=== PATIENT | female | born 1930 | race Two or more races ===

== ENCOUNTER 2017-06-18 23:40 | Inpatient (IN) | payer MEDICARE, MEDICAID ==
[~2017-06-18] VITALS: Ht 162.6 cm; Wt 68.0 kg
[~2017-06-18 23:40] MED LIST: ALENDRONATE SOD10 MG ORAL; AMLODIPINE BES2.5 MG ORAL; ARICEPT10 MG ORAL; BENICAR40 MG ORAL; CLOTRIMAZOLE15 GM TOPIC; FLUTICASONE PRO16 G1 NASAL; NITRO-BID1 GM TOPIC; PRAVASTATIN SOD20 M1 ORAL; SERTRALINE HCL25 MG ORAL
--- NOTE | 2017-06-19 00:35 | Emergency Room Report ---
History of Present Illness General Chief Complaint: Syncope Source: Patient Present Illness HPI 87-year-old female presenting with presyncopal episode. Patient had a mechanical fall today, fell onto her right side, had right thigh pain, went to [facility], had x-rays done and blood work they stated that there is no fracture. Patient was given 1 norco, They asked for another pill right before patient leaves so that she will not be in pain. When patient went home she felt very lightheaded, dizzy, had presyncopal episode. Did not fall again did not hit her head. Head trauma, +LOC for [ ] min. Denies sob, palpitations, or chest pain before event. There was no seizure like activity, tongue biting, urinary incontinence, blurry vision, or ROWELL. Pt has been eating/drinking well. After fall patient was ambulatory with her walker. Allergies: Coded Allergies: ASPIRIN (Verified Allergy, Unknown, 07/13/16) SULFA (SULFONAMIDE ANTIBIOTICS) (Verified Allergy, Unknown, 07/13/16) Patient History Past Medical History: see triage record Past Surgical History: none Pertinent Family History: none Now: No Reviewed Nursing Documentation: PMH: Agreed, PSxH: Agreed Nursing Documentation-PMH Hx Cardiac Problems: Yes - hyperlipidemia Hx Hypertension: Yes - high cholesterol Hx Diabetes: Yes - Pre-diabetic Hx Cancer: No Hx Gastrointestinal Problems: No History Of Psychiatric Problem: Yes - Alzheimers Hx Alzheimer's Disease: Yes Hx Memory Loss: Yes Hx Dizziness: Yes Review of Systems All Other Systems: negative except mentioned in HPI Physical Exam Vital Signs Date Time Temp Pulse Resp B/P (MAP) Pulse Ox O2 Delivery O2 Flow Rate FiO2 06/18/17 23:33 56 18 109/61 93 Room Air Sp02 EP Interpretation: reviewed, normal General Appearance: normal inspection, well appearing, no apparent distress, alert, GCS 15, non-toxic Head: normocephalic, atraumatic Eyes: bilateral eye normal inspection, bilateral eye PERRL, bilateral eye EOMI ENT: normal ENT inspection, normal pharynx, normal voice, moist mucus membranes Neck: normal inspection, full range of motion, supple Respiratory: normal inspection, lungs clear, normal breath sounds, no respiratory distress, no retraction, no wheezing, speaking full sentences, chest symmetrical Cardiovascular #1: normal inspection, regular rate, rhythm, no edema, normal capillary refill Cardiovascular #2: 2+ radial (R), 2+ radial (L) Gastrointestinal: normal inspection, non tender, soft, non-distended, no guarding Musculoskeletal: other - Right lateral proximal thigh with ecchymosis, swelling , otherwise right lower high he is not rotated or shortened, has full range of motion, tender to palpation ecchymosis Neurologic: normal inspection, alert, oriented x3, responsive, motor strength/ tone normal, sensory intact, speech normal Psychiatric: normal inspection, judgement/insight normal, memory normal Skin: normal inspection, normal color, no rash, warm/dry, well hydrated, normal turgor Medical Decision Making Diagnostic Impression: Primary Impression: UTI (urinary tract infection) Additional Impressions: Syncope Generalized weakness Hematoma of right thigh ER Course 87-year-old female with presyncopal episode DDX Possible drug reaction from opiates Vasovagal vs. orthostatic / hypovolemic/dehydration vs. cardiac arrhythmia (SVT , Afib) vs. cardiac (, ACS) vs. PE vs. metabolic (hypoglycemia, hypoxia), vs neuro (seizure, CVA, intracranial bleed) There is no head trauma or LOC, no neurological signs or symptoms at this time, will not do CT head from Plan: bgm, cbc, bmp, ekg, cxr consider IVF Patient was just discharged from [facility], for right thigh pain after fall, was told that all imaging was negative, so I will not repeat any x-rays here ER course: Patient has remained awake alert, and neurologically intact IV abx given for UTI Disposition: Patient requires inpatient admission for generalized weakness, UTI, presyncopal episode Patient will be admitted to telemetry Discussed with Dr. de santiago who has accepted patient for admission Please note that this Emergency Department Report was dictated using [employer] house supervisor technology software, occasionally this can lead to erroneous entry secondary to interpretation by the dictation equipment. EKG Diagnostic Results EP Interpretation: Yes Rate: normal Rhythm: NSR ST Segments: T-wave inversions noted in lateral leads ASA given to patient: No Rhythm Strip EP Interpretation: Yes Rate: 60 Rhythm: NSR, no PVCs, no ectopy. Chest X-ray CXR: Ordered: Yes 1 view Indication: Chest pain EP interpretation: Yes Interpretation: No consolidation, no effusion, no PTX, no acute cardiopulmonary disease Impression: No acute disease Electronically signed by Doug Guzmán MD Laboratory Tests Test 06/19/17 00:20 06/19/17 00:30 White Blood Count 10.0 K/UL (4.8-10.8) Red Blood Count 4.14 M/UL (4.20-5.40) L Hemoglobin 12.3 G/DL (12.0-16.0) Hematocrit 37.9 % (37.0-47.0) Mean Corpuscular Volume 92 FL (80-99) Mean Corpuscular Hemoglobin 29.7 PG (27.0-31.0) Mean Corpuscular Hemoglobin Concent 32.5 G/DL (32.0-36.0) Red Cell Distribution Width 12.9 % (11.6-14.8) Platelet Count 83 K/UL (150-450) L Mean Platelet Volume 16.9 FL (6.5-10.1) H Neutrophils (%) (Auto) % (45.0-75.0) Lymphocytes (%) (Auto) % (20.0-45.0) Monocytes (%) (Auto) % (1.0-10.0) Eosinophils (%) (Auto) % (0.0-3.0) Basophils (%) (Auto) % (0.0-2.0) Sodium Level 143 MMOL/L (136-145) Potassium Level 3.8 MMOL/L (3.5-5.1) Chloride Level 109 MMOL/L (98-107) H Carbon Dioxide Level 24 MMOL/L (21-32) Anion Gap 10 mmol/L (5-15) Blood Urea Nitrogen 23 mg/dL (7-18) H Creatinine 0.7 MG/DL (0.55-1.30) Estimate Glomerular Filtration Rate mL/min (>60) Glucose Level 155 MG/DL (74-106) H Calcium Level 9.0 MG/DL (8.5-10.1) Total Bilirubin 0.4 MG/DL (0.2-1.0) Aspartate Amino Transferase (AST) 19 U/L (15-37) Alanine Aminotransferase (ALT) 22 U/L (12-78) Alkaline Phosphatase 49 U/L (46-116) Total Creatine Kinase 94 U/L (26-308) Creatine Kinase MB 3.3 NG/ML (0.0-3.6) Creatine Kinase MB Relative Index 3.5 Troponin I 0.057 ng/mL (0.000-0.056) Pro-B-Type Natriuretic Peptide 1334 pg/mL (0-125) H Total Protein 5.9 G/DL (6.4-8.2) L Albumin 3.2 G/DL (3.4-5.0) L Globulin 2.7 g/dL Albumin/Globulin Ratio 1.2 (1.0-2.7) Urine Color Brown Urine Appearance Slightly cloudy Urine pH 5 (4.5-8.0) Urine Specific [place] 1.025 (1.005-1.035) Urine Protein 1+ (NEGATIVE) H Urine Glucose (UA) Negative (NEGATIVE) Urine Ketones 1+ (NEGATIVE) H Urine Occult Blood 2+ (NEGATIVE) H Urine Nitrite Positive (NEGATIVE) H Urine Bilirubin Negative (NEGATIVE) Urine Urobilinogen Normal MG/DL (0.0-1.0) Urine Leukocyte Esterase 2+ (NEGATIVE) H Urine RBC 2-4 /HPF (0 - 2) H Urine WBC 2-4 /HPF (0 - 2) Urine Squamous Epithelial Cells Occasional /LPF Urine Calcium Oxalate Crystals Few /LPF (NONE) Urine Bacteria Moderate /HPF (NONE) H Last Vital Signs Date Time Temp Pulse Resp B/P (MAP) Pulse Ox O2 Delivery O2 Flow Rate FiO2 06/18/17 23:33 56 18 109/61 93 Room Air Disposition: ADMITTED INPATIENT Condition: Doug Powers M.D. Jun 19, 2017 00:35
[2017-06-19 00:59] LABS: APPEARANCE,URINE SLIGHTLY CLOUDY; BILIRUBIN, URINE NEGATIVE (NEGATIVE); COLOR,URINE BROWN; GLUCOSE, URINE (UA) NEGATIVE (NEGATIVE); KETONES,URINE 1+ (NEGATIVE); LEUKOCYTE ESTERASE ,URINE 2+ (NEGATIVE); NITRITE,URINE POSITIVE (NEGATIVE); PH,URINE 5 (4.5-8.0); PROTEIN,URINE 1+ (NEGATIVE); UROBILINOGEN,URINE NORMAL MG/DL (0.0-1.0)
[2017-06-19 00:59] LABS: HEMATOCRIT 37.9 % (37.0-47.0); HEMOGLOBIN 12.3 G/DL (12.0-16.0); MEAN CORPUSCULAR VOLUME 92 FL (80-99); PLATELET COUNT 83 K/UL (150-450); RED BLOOD COUNT 4.14 M/UL (4.20-5.40); RED CELL DISTRIBUTION WIDTH 12.9 % (11.6-14.8)
[2017-06-19 01:13] LABS: ALANINE AMINOTRANSFERASE 22 U/L (12-78); ALBUMIN 3.2 G/DL (3.4-5.0); ALBUMIN/GLOBULIN RATIO 1.2 (1.0-2.7); ALKALINE PHOSPHATASE 49 U/L (46-116); ANION GAP 10 mmol/L (5-15); ASPARTATE AMINO TRANSFERASE 19 U/L (15-37); BILIRUBIN,TOTAL 0.4 MG/DL (0.2-1.0); BLOOD UREA NITROGEN 23 mg/dL (7-18); CARBON DIOXIDE 24 MMOL/L (21-32); CHLORIDE 109 MMOL/L (98-107); CREATININE 0.7 MG/DL (0.55-1.30); POTASSIUM 3.8 MMOL/L (3.5-5.1); SODIUM 143 MMOL/L (136-145)
[2017-06-19] MEDS ORDERED: cefTRIAXone 1 GM in NS 55 ML IVPB ONE (01:15)
[2017-06-19 01:21] LABS: CKMB 3.3 NG/ML (0.0-3.6); CREATINE KINASE 94 U/L (26-308)
[2017-06-19] MEDS ORDERED: PRAVASTATIN SOD20 M1 ORAL (03:30)
[2017-06-19] MEDS ORDERED: DONEPEZIL HCL10 MG ORAL (03:30)
[2017-06-19] MEDS ORDERED: FOSAMAX70 MG ORAL (03:30)
[2017-06-19 03:47] VITALS: BP 109/61
[2017-06-19] MEDS ORDERED: Zolpidem 5mg tab ORAL PRN (06:00)
[2017-06-19] MEDS ORDERED: Donepezil 10mg tab ORAL SCH (09:00)
[2017-06-19] MEDS ORDERED: Sertraline 50mg tab ORAL SCH (09:00)
[2017-06-19 09:08] LABS: CHOLESTEROL 202 MG/DL (< 200); HDL CHOLESTEROL 77 MG/DL (40-60); TRIGLYCERIDES 94 MG/DL (0-200)
[2017-06-19 09:19] LABS: HEMATOCRIT 37.4 % (37.0-47.0); HEMOGLOBIN 11.9 G/DL (12.0-16.0); MEAN CORPUSCULAR VOLUME 92 FL (80-99); PLATELET COUNT 76 K/UL (150-450); RED BLOOD COUNT 4.06 M/UL (4.20-5.40); RED CELL DISTRIBUTION WIDTH 13.1 % (11.6-14.8); WHITE BLOOD COUNT 7.9 K/UL (4.8-10.8)
--- NOTE | 2017-06-19 10:21 | Diagnostic Imaging Report ---
Indication: PAIN Technique: One view of the chest Comparison: 07/13/2016 Findings: Less optimal inspiration currently. The heart is borderline enlarged. The aorta is tortuous and calcified. Lungs and pleural spaces are clear. There is thoracolumbar scoliotic deformity again demonstrated Impression: Findings as noted. No definite acute process This agrees with the preliminary interpretation provided by the emergency room physician
[2017-06-19 11:52] VITALS: BP 124/55
--- NOTE | 2017-06-19 12:55 | Wound Care Consultation ---
Wound Assessment Wound Assessment : Wound Number: 1 Wound Present on Admission: Yes New Wound: No Status Change of Wound: No Wound Location Body Site Modif: right Wound Location Body Site: elbow Wound Type: traumatic injury Usama Test: Does not Usama Percent of Wound Purple/Maroon: 100 - dry Wound Drainage Amount: None Wound Drainage Odor: None/Absent Tissue Surrounding Wound: Erythemic Wound General Appearance: Reddened Wound Comment #1 Right elbow s/p fall traumatic injury. No drainage noted at this tme. Recommendation -Keep clean and dry -#1 Upper back are DTI pressure ulcer. Cover with Biatain silicone drg daily -Optimize nutrition -Assess and f/u accordingly for any changes GUI SORIANO RN Jun 19, 2017 12:55
[2017-06-19 16:00] VITALS: BP 133/60
[2017-06-19 19:21] LABS: CKMB 3.2 NG/ML (0.0-3.6)
[2017-06-19 20:00] VITALS: BP 123/64
[2017-06-19] MEDS ORDERED: Lidocaine 1% MPF 10mg/ml 5ml INJ SCH (21:00)
[2017-06-19] MEDS ORDERED: cefTRIAXone 1gm/D5W 55ml IVPB SCH ×2 (22:00)
--- NOTE | 2017-06-19 22:15 | Consultation ---
DATE OF CONSULTATION: 06/19/2017 CARDIOLOGY CONSULTATION CONSULTING PHYSICIAN: Lemuel Andrew M.D. REQUESTING PHYSICIAN: Jair De La Rosa M.D. REASON FOR CONSULTATION: Elevated troponin level. HISTORY OF PRESENT ILLNESS: This 87-year-old [place]ian female was walking in the parking lot with her son yesterday afternoon when she tripped, fell, and landed on her right side. Son grabbed her left shoulder to capture, but was unable to prevent trauma to her right hip region. She was taken to [facility] emergency room where x-rays were done and negative for any fracture. The patient did have a huge bruise on her right thigh area that was noted to be quite large at the time of her discharge from [facility]. She was given pain medications and sent home. While in the elevator going back home, she suddenly began feeling lightheaded, dizzy, and passed out. She did not have any head trauma and on this occasion according to her son, did have loss of consciousness for a few seconds. Paramedics were summoned and the patient was brought here for further evaluation. She did not have any seizure activity and reportedly had stable vital signs. In the emergency room, blood pressure was 109/61 with heart rate 56 and respiratory rate of 18. In the field, she was given Narcan. PAST MEDICAL HISTORY: Type 2 diabetes mellitus, hyperlipidemia, hypertension, and cerebrovascular disease with mild dementia. MEDICATIONS: Medications prior to admission reviewed and reconciled. ALLERGIES: Aspirin and sulfa. FAMILY HISTORY: Noncontributory. REVIEW OF SYSTEMS: No fevers or chills. No cough or sputum production. No history of asthma. No history of blood clots in the legs. No history of seizure or prior stroke. No history of heart attack in the past. She does have mild blood pressure elevation. She has diabetes, managed with diet. She is on anti-lipid therapy. There is no history of melena, bright red blood per rectum, or urinary incontinence. The patient was hospitalized here about a year ago with a syncopal episode. Workup included a carotid duplex scan revealing mild plaquing and an echocardiogram revealing normal ejection fraction and minimal degenerative valve disease and no additional workup was performed. PHYSICAL EXAMINATION: VITAL SIGNS: As noted above. HEENT: Conjunctivae are pink. Sclerae anicteric. Oropharynx clear. Mucous membranes moist. NECK: Supple. Jugular venous pressure normal. Carotid upstrokes without delay. LUNGS: Clear. CARDIAC: Regular rhythm and rate. Normal S1 and S2 with a 4th heart sound. No murmur. ABDOMEN: Soft and nontender. EXTREMITIES: There is a large ecchymotic swollen region of her right proximal thigh. Distal pulses are palpable. The left shoulder has full passive range of motion. NEUROLOGIC: Nonfocal. LABORATORY AND DIAGNOSTIC DATA: EKG, sinus bradycardia with voltage criteria for left ventricular hypertrophy. White count 7.9 and hemoglobin 11.9. Potassium 3.8. Troponin 0.057. LDL 109 and HDL 77. Pro-natriuretic peptide 1334. Albumin 3.2. Glucose 155. IMPRESSION: 1. Syncopal episode, appears to have been precipitated by pain medications given following a mechanical fall earlier in the day. 2. Elevated troponin level raises concern of an acute myocardial ischemic episode. Pro-natriuretic peptide assay elevation suggests chronic diastolic congestive heart failure due to hypertensive heart disease. 3. Mild prerenal azotemia suggests hypovolemia and mild dehydration. 4. Sinus bradycardia, presently does not appear to be of hemodynamic significance. PLAN: 1. Continue cardiac monitoring. 2. Cautious hydration. 3. Serial troponins. 4. Avoid beta-blockers in view of low baseline heart rate. 5. Hold antihypertensives in view of low range blood pressure at this time. 6. Pain control as needed. 7. We will need to review radiographs from [facility] and consider further imaging if the patient's mobility is impaired. 8. While in bed, DVT prophylaxis has been put into place. Lemuel Andrew M.D. DR: MAKENZIE JOB#: [id number] CC:
--- NOTE | 2017-06-19 23:00 | History and Physical Report ---
DATE OF ADMISSION: 06/19/2017 REASON FOR ADMISSION: Syncope. HISTORY OF PRESENT ILLNESS: This is an 87-year-old female whose son is at the bedside. The patient is mostly Farsi speaking. The patient had mechanical fall yesterday. After taking [place], the patient apparently went to [facility] Emergency Room and had x-rays done and blood work done for possible fracture. The patient went home and actually taking [place], felt dizzy and had a syncopal episode. The patient did not have any head trauma, but she does complain of significant bruising of the right thigh. The patient without any seizure activity. No incontinence noted. The care discussed with the son. 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 The patient has evidence of thrombocytopenia. PAST MEDICAL HISTORY: As noted above. The patient has evidence of hypercholesterolemia. She may have early dementia, has mild reflux, possibly mild depression. SOCIAL HISTORY: Nonsmoker and nondrinker. The patient is otherwise ambulatory, independent. REVIEW OF SYSTEMS: Otherwise negative with the exception of the above. The patient has also history of hyperlipidemia. PHYSICAL EXAMINATION: GENERAL: A well-developed female, comfortable, alert, and oriented x3. VITAL SIGNS: Blood pressure 109/61, 93% saturation on room air, pulse 56, the patient's respiratory rate is 18. HEENT: Fairly negative. Extraocular movements are grossly intact. There is no photophobia. Oropharynx moist. NECK: Supple. The patient able to move neck adequately, but does have some pain. LUNGS: Fairly clear. Symmetric. No rhonchi or wheezes. CARDIAC: Normal S1 and S2. Regular rate and rhythm. Intermittent bradycardia. No murmurs, rubs, or gallops. ABDOMEN: Soft, nontender, and nondistended. EXTREMITIES: No cyanosis, clubbing, or edema. The patient's right thigh with a large bruise. NEUROLOGIC: Otherwise nonfocal. She moves all extremities symmetrically in bed. LABORATORY AND DIAGNOSTIC DATA: Laboratory data reviewed. CBC normal except platelets are 83. Electrolytes fairly normal. BUN 23, creatinine 0.7. Troponin 0.057. Albumin is 3.2. EKG noted and reviewed. IMPRESSION: 1. Elevated troponin, possible [id number] myocardial infarction. 2. History of hypercholesterolemia. 3. Hypertension. 4. History of syncope. 5. History of fall. 6. Evidence of thrombocytopenia. RECOMMENDATION: Resume medications. Empiric antibiotics given unclear as to why, review of the urinalysis suggests fairly negative findings. We will monitor clinically and maintain IV hydration. We will treat possible UTI with p.o. antibiotics and followup on urine culture. We will obtain Cardiology evaluation to assess for elevated troponin. We will obtain serial troponins, obtain echo and EKG. Discussed with son. We will discharge when the patient is stable. Jair De La Rosa M.D. DR: DALJIT JOB#: [id number] CC:
--- NOTE | 2017-06-19 23:00 | History and Physical Report ---
DATE OF ADMISSION: 06/19/2017 REASON FOR ADMISSION: Syncope. HISTORY OF PRESENT ILLNESS: This is an 87-year-old female whose son is at the bedside. The patient is mostly Farsi speaking. The patient had mechanical fall yesterday. After taking [place], the patient apparently went to [facility] Emergency Room and had x-rays done and blood work done for possible fracture. The patient went home and actually taking [place], felt dizzy and had a syncopal episode. The patient did not have any head trauma, but she does complain of significant bruising of the right thigh. The patient without any seizure activity. No incontinence noted. The care discussed with the son. 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 The patient has evidence of thrombocytopenia. PAST MEDICAL HISTORY: As noted above. The patient has evidence of hypercholesterolemia. She may have early dementia, has mild reflux, possibly mild depression. SOCIAL HISTORY: Nonsmoker and nondrinker. The patient is otherwise ambulatory, independent. REVIEW OF SYSTEMS: Otherwise negative with the exception of the above. The patient has also history of hyperlipidemia. PHYSICAL EXAMINATION: GENERAL: A well-developed female, comfortable, alert, and oriented x3. VITAL SIGNS: Blood pressure 109/61, 93% saturation on room air, pulse 56, the patient's respiratory rate is 18. HEENT: Fairly negative. Extraocular movements are grossly intact. There is no photophobia. Oropharynx moist. NECK: Supple. The patient able to move neck adequately, but does have some pain. LUNGS: Fairly clear. Symmetric. No rhonchi or wheezes. CARDIAC: Normal S1 and S2. Regular rate and rhythm. Intermittent bradycardia. No murmurs, rubs, or gallops. ABDOMEN: Soft, nontender, and nondistended. EXTREMITIES: No cyanosis, clubbing, or edema. The patient's right thigh with a large bruise. NEUROLOGIC: Otherwise nonfocal. She moves all extremities symmetrically in bed. LABORATORY AND DIAGNOSTIC DATA: Laboratory data reviewed. CBC normal except platelets are 83. Electrolytes fairly normal. BUN 23, creatinine 0.7. Troponin 0.057. Albumin is 3.2. EKG noted and reviewed. IMPRESSION: 1. Elevated troponin, possible [id number] myocardial infarction. 2. History of hypercholesterolemia. 3. Hypertension. 4. History of syncope. 5. History of fall. 6. Evidence of thrombocytopenia. RECOMMENDATION: Resume medications. Empiric antibiotics given unclear as to why, review of the urinalysis suggests fairly negative findings. We will monitor clinically and maintain IV hydration. We will treat possible UTI with p.o. antibiotics and followup on urine culture. We will obtain Cardiology evaluation to assess for elevated troponin. We will obtain serial troponins, obtain echo and EKG. Discussed with son. We will discharge when the patient is stable. Jair De La Rosa M.D. DR: DALJIT JOB#: [id number] CC:
--- NOTE | 2017-06-19 23:00 | History and Physical Report ---
DATE OF ADMISSION: 06/19/2017 REASON FOR ADMISSION: Syncope. HISTORY OF PRESENT ILLNESS: This is an 87-year-old female whose son is at the bedside. The patient is mostly Farsi speaking. The patient had mechanical fall yesterday. After taking [place], the patient apparently went to [facility] Emergency Room and had x-rays done and blood work done for possible fracture. The patient went home and actually taking [place], felt dizzy and had a syncopal episode. The patient did not have any head trauma, but she does complain of significant bruising of the right thigh. The patient without any seizure activity. No incontinence noted. The care discussed with the son. 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 The patient has evidence of thrombocytopenia. PAST MEDICAL HISTORY: As noted above. The patient has evidence of hypercholesterolemia. She may have early dementia, has mild reflux, possibly mild depression. SOCIAL HISTORY: Nonsmoker and nondrinker. The patient is otherwise ambulatory, independent. REVIEW OF SYSTEMS: Otherwise negative with the exception of the above. The patient has also history of hyperlipidemia. PHYSICAL EXAMINATION: GENERAL: A well-developed female, comfortable, alert, and oriented x3. VITAL SIGNS: Blood pressure 109/61, 93% saturation on room air, pulse 56, the patient's respiratory rate is 18. HEENT: Fairly negative. Extraocular movements are grossly intact. There is no photophobia. Oropharynx moist. NECK: Supple. The patient able to move neck adequately, but does have some pain. LUNGS: Fairly clear. Symmetric. No rhonchi or wheezes. CARDIAC: Normal S1 and S2. Regular rate and rhythm. Intermittent bradycardia. No murmurs, rubs, or gallops. ABDOMEN: Soft, nontender, and nondistended. EXTREMITIES: No cyanosis, clubbing, or edema. The patient's right thigh with a large bruise. NEUROLOGIC: Otherwise nonfocal. She moves all extremities symmetrically in bed. LABORATORY AND DIAGNOSTIC DATA: Laboratory data reviewed. CBC normal except platelets are 83. Electrolytes fairly normal. BUN 23, creatinine 0.7. Troponin 0.057. Albumin is 3.2. EKG noted and reviewed. IMPRESSION: 1. Elevated troponin, possible [id number] myocardial infarction. 2. History of hypercholesterolemia. 3. Hypertension. 4. History of syncope. 5. History of fall. 6. Evidence of thrombocytopenia. RECOMMENDATION: Resume medications. Empiric antibiotics given unclear as to why, review of the urinalysis suggests fairly negative findings. We will monitor clinically and maintain IV hydration. We will treat possible UTI with p.o. antibiotics and followup on urine culture. We will obtain Cardiology evaluation to assess for elevated troponin. We will obtain serial troponins, obtain echo and EKG. Discussed with son. We will discharge when the patient is stable. Jair De La Rosa M.D. DR: DALJIT JOB#: [id number] CC:
[2017-06-20 00:07] VITALS: BP 125/58
[2017-06-20 08:05] VITALS: BP 141/65
[2017-06-20] MEDS ORDERED: Tubing IV Secondary IV ONE (10:17)
--- NOTE | 2017-06-20 14:27 | Cardiology Report ---
APPROVED REPORT EXAM: Two-dimensional and M-mode echocardiogram with Doppler and color Doppler. INDICATION Syncope M-Mode DIMENSIONS IVSd1.8 (0.7-1.1cm)Left Atrium (MM)4.1 (1.6-4.0cm) LVDd3.2 (3.5-5.6cm)Aortic Root3.1 (2.0-3.7cm) PWd1.7 (0.7-1.1cm)Aortic Cusp Exc.1.6 (1.5-2.0cm) LVDs1.5 (2.5-4.0cm) PWs2.1 cm Normal left ventricular chamber size, systolic function and wall motion to extent visualized. Left ventricular ejection fraction estimated to be 65 %. Study quality precludes accurate assessment of regional wall motion. Moderate left ventricular hypertrophy. Anterior Echo-free space, may be due to pericardial fat or effusion. All other cardiac chamber sizes are within normal limits. Focal aortic valve sclerosis with adequate cusp excursion. Thickened mitral valve leaflets with normal excursion. Mitral annulus and aortic root calcification. Pulmonic valve not well visualized. Normal tricuspid valve structure. IVC at normal size with physiologic collapse. A color flow and spectral Doppler study was performed and revealed: Mild aortic regurgitation. Mild mitral regurgitation. Mitral diastolic velocities suggest reduced left ventricular relaxation c/w mild LV diastolic dysfunction (Grade I). Trace tricuspid regurgitation. Tricuspid systolic velocities suggests peak right ventricular systolic pressure of 28 mmHg. Mild pulmonic regurgitation present.
--- NOTE | 2017-06-20 14:45 | Cardiology Report ---
APPROVED REPORT EKG Measurement Heart [id number] [place] [id number] Sinus bradycardia Left ventricular hypertrophy with repolarization abnormality Abnormal ECG
--- NOTE | 2017-06-20 14:45 | Cardiology Report ---
APPROVED REPORT EKG Measurement Heart [id number] [place] 198P24 [id number] Sinus bradycardia Left ventricular hypertrophy with repolarization abnormality Abnormal ECG
--- NOTE | 2017-06-20 14:45 | Cardiology Report ---
APPROVED REPORT EKG Measurement Heart [id number] [place] 198P24 [id number] Sinus bradycardia Left ventricular hypertrophy with repolarization abnormality Abnormal ECG
--- NOTE | 2017-06-20 14:46 | Cardiology Report ---
APPROVED REPORT EKG Measurement Heart [id number] [place] 198P32 [id number] Normal sinus rhythm Left ventricular hypertrophy with repolarization abnormality Abnormal ECG
--- NOTE | 2017-06-20 14:46 | Cardiology Report ---
APPROVED REPORT EKG Measurement Heart [id number] [place] 198P32 [id number] Normal sinus rhythm Left ventricular hypertrophy with repolarization abnormality Abnormal ECG
--- NOTE | 2017-06-20 14:46 | Cardiology Report ---
APPROVED REPORT EKG Measurement Heart [id number] DC 198P32 [id number] Normal sinus rhythm Left ventricular hypertrophy with repolarization abnormality Abnormal ECG
--- NOTE | 2017-06-22 10:34 | Diagnostic Imaging Report ---
APPROVED REPORT CPT Code: 04166 Present Symptoms Comments: Pain BILATERAL: Imaging reveals a patent deep venous system bilaterally. There is no evidence of thrombus within the femoral, popliteal or tibial segments. The greater saphenous veins are also within normal limits. Doppler indicates normal spontaneous flow within these segments.
--- NOTE | 2017-06-22 10:34 | Diagnostic Imaging Report ---
APPROVED REPORT CPT Code: 60661 Present Symptoms Comments: Pain BILATERAL: Imaging reveals a patent deep venous system bilaterally. There is no evidence of thrombus within the femoral, popliteal or tibial segments. The greater saphenous veins are also within normal limits. Doppler indicates normal spontaneous flow within these segments.
--- NOTE | 2017-06-22 10:34 | Diagnostic Imaging Report ---
APPROVED REPORT CPT Code: 63614 Present Symptoms Comments: Pain BILATERAL: Imaging reveals a patent deep venous system bilaterally. There is no evidence of thrombus within the femoral, popliteal or tibial segments. The greater saphenous veins are also within normal limits. Doppler indicates normal spontaneous flow within these segments.
--- NOTE | 2017-06-22 13:54 | Discharge Summary ---
Discharge Summary Hospital Course Date of Admission Jun 19, 2017 at 01:20 Date of Discharge Jun 20, 2017 at 10:18 Admitting Diagnosis SYNCOPE DESHAUN Chan is a 87 year old female who was admitted on Jun 19, 2017 at 01:20 for Syncope Hospital Course dc summary #[id number] Discharge Discharge Disposition Patient signed AMA Discharge Diagnoses: Discharge Instructions Discharge Instructions Special Instructions I have been assigned to complete a D/C Summary on this account. I was not involved in the patient management Keely Dean NP (Vanchtein) Jun 22, 2017 13:54
--- NOTE | 2017-06-22 13:54 | Discharge Summary ---
Discharge Summary Hospital Course Date of Admission Jun 19, 2017 at 01:20 Date of Discharge Jun 20, 2017 at 10:18 Admitting Diagnosis SYNCOPE DESHAUN Chan is a 87 year old female who was admitted on Jun 19, 2017 at 01:20 for Syncope Hospital Course dc summary #[id number] Discharge Discharge Disposition Patient signed AMA Discharge Diagnoses: Discharge Instructions Discharge Instructions Special Instructions I have been assigned to complete a D/C Summary on this account. I was not involved in the patient management Keely Dean NP (Vanchtein) Jun 22, 2017 13:54
--- NOTE | 2017-06-22 13:54 | Discharge Summary ---
Discharge Summary Hospital Course Date of Admission Jun 19, 2017 at 01:20 Date of Discharge Jun 20, 2017 at 10:18 Admitting Diagnosis SYNCOPE DESHAUN Chan is a 87 year old female who was admitted on Jun 19, 2017 at 01:20 for Syncope Hospital Course dc summary #[id number] Discharge Discharge Disposition Patient signed AMA Discharge Diagnoses: Discharge Instructions Discharge Instructions Special Instructions I have been assigned to complete a D/C Summary on this account. I was not involved in the patient management Keely Dean NP (Vanchtein) Jun 22, 2017 13:54
--- NOTE | 2017-06-22 20:23 | Cardiology Report ---
APPROVED REPORT EKG Measurement Heart [id number] OR 198P2 [id number] Normal sinus rhythm Left ventricular hypertrophy with repolarization abnormality Abnormal ECG
--- NOTE | 2017-06-22 20:23 | Cardiology Report ---
APPROVED REPORT EKG Measurement Heart [id number] LA 198P2 [id number] Normal sinus rhythm Left ventricular hypertrophy with repolarization abnormality Abnormal ECG
--- NOTE | 2017-06-22 20:23 | Cardiology Report ---
APPROVED REPORT EKG Measurement Heart [id number] OR 198P2 [id number] Normal sinus rhythm Left ventricular hypertrophy with repolarization abnormality Abnormal ECG
--- NOTE | 2017-06-22 22:15 | Discharge Summary 2 SIG ---
DATE OF ADMISSION: 06/19/2017 DATE OF SIGNING AGAINST MEDICAL ADVISE 06/20/2017 REASON FOR ADMISSION: 87-year-old female with past medical history of high cholesterol, Alzheimer dementia, and prediabetes presented to emergency department after apparently presyncopal episode. Earlier that day, she had a mechanical fall resulting in the fall on the right side with right thigh hematoma and pain. She went to [facility] for evaluation. Imaging revealed no evidence of acute fracture. Per patient, blood work was stable. The patient was given analgesia with Smoaks x2. When the patient came home, she felt lightheaded and dizzy. She did not fell at that time, did not hit her head but reported lightheadedness and dizziness. She denied shortness of breath or palpitations. No chest pain. There was no seizure-like activity. Workup in the emergency room revealed stable vital signs. Pulse oximetry was stable on room air. Urinalysis with evidence of UTI. The patient was admitted for further management with diagnosis of syncope, possible UTI, generalized weakness, and hematoma of right thigh. HOSPITAL STAY: The patient was admitted to telemetry bed. EKG revealed sinus bradycardia, left ventricular hypertrophy with repolarization abnormality. First troponin was minimally elevated -0.057. Pro BNP -1384. Cardiology consult was requested. Serial troponin x 2 negative after the first one. Echocardiogram revealed preserved ejection fraction of 65%, right ventricular systolic pressure of 28, mild mitral regurgitation, and moderate left ventricular hypertrophy. Leather Dresser seen and evaluated the patient and stated that the patient's syncopal episode was likely precipitated by overdose on pain medication given following a mechanical fall earlier that day. Elevated troponin raised concern for acute myocardial ischemic episode and proBNP peptide essay elevation was suggestive of chronic diastolic congestive heart failure due to hypertensive heart disease. Serial troponin were all negative except the initial first one. Beta-padmini were avoided in lieu of the low baseline heart rate. Antihypertensives were hold due to the low range of blood pressure at that time. Lipid panel revealed elevated total cholesterol, and elevated LDL -109. Chest x-ray revealed no acute cardiopulmonary disease. Venous duplex of bilateral lower extremities was negative. Stable hemoglobin and hematocrit, but platelets -83. GI prophylaxis provided. No leukocytosis. Urinalysis with evidence of moderate bacteria, positive for nitrite and leukocyte esterase, and no pyuria. The patient was on empiric antibiotics. Urine culture grew E. coli. Patient had no urinary symptoms, possible asymptomatic bacteriuria. Home medications were resumed. Heparin was hold due to thrombocytopenia. The patient also had dehydration resulted in prerenal azotemia and was on gentle IV hydration. Pain control was provided. TSH was within normal limits. On 06/20/2017, the patient's son who was on the bedside at all times , stated that the patient needs to leave otherwise she will miss her flight and call was placed to primary doctor, who stated that the linux unix engineer needs to clear the patient. Leather Dresser stated that he was going to be in the unit a bit later. The patient and her son were informed about conversation. The patient refused to stay and wait for linux unix engineer to clear for discharge, She signed against medical advice form. The risks and consequences of signing against medical advice were discussed with the patient and her son.. The patient and her son both verbalized understanding, nevertheless the consent was signed, and the patient left accompanied by her son against medical advice. FINAL DIAGNOSES: 1. Elevated troponin. 2. Possible acute myocardial ischemic episode. 3. History of hypertension with recurrent hypotension. 4. Hypercholesterolemia. 5. Syncopal episode likely precipitated by pain medication after mechanical fall the same day. 6. Dehydration resulting in prerenal azotemia. 7. 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 8. Thrombocytopenia. 9. History of falls. Jair De La Rosa M.D. I have been assigned to dictate discharge summary on this account and I was not involved in the patient's management. Keely Dean N.P. (Vanchtein) DR: JAMES JOB#: [id number] CC: [id number]
== END 2017-06-20 10:18 | disposition left against medical advice (07) | DRG 312 ==
LOC: EDBD 23:40 → EMR 06-19 01:15 → 2E 06-19 01:20 → EDBEDREQ 06-19 02:18
DX: R55 Syncope and collapse (principal); T40.2X5A Adverse effect of other opioids, initial encounter; D69.6 Thrombocytopenia, unspecified; E86.0 Dehydration; I11.0 Hypertensive heart disease with heart failure; I50.32 Chronic diastolic (congestive) heart failure; E86.1 Hypovolemia; N39.0 Urinary tract infection, site not specified; E11.9 Type 2 diabetes mellitus without complications; B96.20 Unspecified Escherichia coli [E. coli] as the cause of diseases classified elsewhere; I34.0 Nonrheumatic mitral (valve) insufficiency; S70.11XA Contusion of right thigh, initial encounter; W01.0XXA Fall on same level from slipping, tripping and stumbling without subsequent striking against object, initial encounter; E78.00 Pure hypercholesterolemia, unspecified; R79.89 Other specified abnormal findings of blood chemistry; Z91.81 History of falling; Z88.6 Allergy status to analgesic agent; Z88.2 Allergy status to sulfonamides; Y92.009 Unspecified place in unspecified non-institutional (private) residence as the place of occurrence of the external cause; G30.9 Alzheimer's disease, unspecified; F02.80 Dementia in other diseases classified elsewhere, unspecified severity, without behavioral disturbance, psychotic disturbance, mood disturbance, and anxiety; S70.11XD Contusion of right thigh, subsequent encounter; W18.30XD Fall on same level, unspecified, subsequent encounter; I49.8 Other specified cardiac arrhythmias; I67.9 Cerebrovascular disease, unspecified; E78.5 Hyperlipidemia, unspecified; I51.7 Cardiomegaly
CPT/HCPCS: 36415; 71010; 80053; 80061; 81003; 82550; 82553; 83880; 84443; 84484; 85007; 85025; 87086; 87181; 93005; 93306; 93970; 99285; J8499